=== PATIENT | female | born 1995 | race Caucasian/White ===

== ENCOUNTER → 2019-08-06 | Outpatient (REF) | payer OTHER ==
[2019-08-06 18:51] LABS: CREATININE, URINE 76.1 MG/DL; MALB URINE SIEMENS 21.1 MG/L; MAU/CREAT RATIO 27.7 MCG/MG (0.0-30.0)
== END ==
LOC: M SMT 17:30
PROVIDERS: ATTEND Physician Assistant Medical
DX: E10.9 Type 1 diabetes mellitus without complications (principal)
CPT/HCPCS: 82043; G0463

== ENCOUNTER → 2019-08-27 | Outpatient (CLI) | payer OTHER ==
[2019-08-27 17:06] LABS: BASO # 0.1 10^3/uL (0.0-0.2); EOS # 0.1 10^3/uL (0.0-0.5); EOS % 1.3 % (0.0-3.0); HEMATOCRIT 41.4 % (36.0-47.0); HEMOGLOBIN 14.2 g/dl (12.0-15.5); LYMPH # 2.4 10^3/uL (1.5-5.0); LYMPH % 38.5 % (24.0-44.0); MEAN CORPUSCULAR HEMOGLOBIN 30.3 pg (27.0-33.0); MEAN CORPUSCULAR HGB CONC 34.3 g/dl (32.0-36.5); MEAN CORPUSCULAR VOLUME 88.3 fl (80.0-96.0); MONO # 0.5 10^3/uL (0.0-0.8); MONO % 8.6 % (0.0-5.0); NEUTROPHILS # 3.1 10^3/uL (1.5-8.5); NEUTROPHILS % 50.4 % (36.0-66.0); PLATELET COUNT, AUTOMATED 305 10^3/uL (150-450); RED BLOOD COUNT 4.69 10^6/uL (4.00-5.40); WHITE BLOOD COUNT 6.1 10^3/uL (4.0-10.0)
[2019-08-27 17:10] LABS: ALBUMIN 3.8 GM/DL (3.2-5.2); ALT/SGPT 20 U/L (12-78); BILIRUBIN,TOTAL 0.9 MG/DL (0.2-1.0); BLOOD UREA NITROGEN 13 MG/DL (7-18); CALCIUM LEVEL 9.6 MG/DL (8.5-10.1); CARBON DIOXIDE LEVEL 29 MEQ/L (21-32); CHLORIDE LEVEL 107 MEQ/L (98-107); CHOLESTEROL LEVEL 181 MG/DL (<200); CHOLESTEROL RISK RATIO 3.016 (<5); CREATININE FOR GFR 0.77 MG/DL (0.55-1.30); GLOMERULAR FILTRATION RATE > 60.0 (>60); GLUCOSE, FASTING 146 MG/DL (70-100); HDL CHOLESTEROL 60 MG/DL (>40); LDL CHOLESTEROL 106 MG/DL (<100); NON-HDL-C 121 MG/DL; POTASSIUM SERUM 3.8 MEQ/L (3.5-5.1); SODIUM LEVEL 141 MEQ/L (136-145); TOTAL PROTEIN 7.2 GM/DL (6.4-8.2); TRIGLYCERIDES LEVEL 73 MG/DL (<150)
[2019-08-27 17:31] LABS: MALB URINE SIEMENS 14.4 MG/L; MAU/CREAT RATIO 9.6 MCG/MG (0.0-30.0)
[2019-08-27 17:49] LABS: HEMOGLOBIN A1c 10.9 %
== END ==
LOC: M WUC 11:20
PROVIDERS: ATTEND Physician Assistant Medical
DX: Z13.220 Encounter for screening for lipoid disorders (principal); E10.9 Type 1 diabetes mellitus without complications

== ENCOUNTER → 2020-12-07 | Outpatient (CLI) | payer OTHER | LOC: M WUC 15:54 | PROVIDERS: ATTEND Physician Assistant | DX: Z32.00 Encounter for pregnancy test, result unknown (principal) ==

== ENCOUNTER → 2020-12-17 | Outpatient (CLI) | payer OTHER ==
[2020-12-17 07:50] LABS: BASO # 0.1 10^3/uL (0.0-0.2); BASO % 1.1 % (0.0-1.0); EOS # 0.1 10^3/uL (0.0-0.5); EOS % 0.9 % (0.0-3.0); HEMOGLOBIN 13.5 g/dl (12.0-15.5); LYMPH # 2.1 10^3/uL (1.5-5.0); LYMPH % 32.6 % (24.0-44.0); MEAN CORPUSCULAR HEMOGLOBIN 29.2 pg (27.0-33.0); MEAN CORPUSCULAR HGB CONC 32.9 g/dl (32.0-36.5); MEAN CORPUSCULAR VOLUME 88.6 fl (80.0-96.0); MONO # 0.6 10^3/uL (0.0-0.8); MONO % 8.9 % (2.0-8.0); NEUTROPHILS # 3.7 10^3/uL (1.5-8.5); PLATELET COUNT, AUTOMATED 296 10^3/uL (150-450); RED BLOOD COUNT 4.63 10^6/uL (4.00-5.40); WHITE BLOOD COUNT 6.5 10^3/uL (4.0-10.0)
[2020-12-17 08:17] LABS: ALBUMIN 3.6 GM/DL (3.2-5.2); ALT/SGPT 30 U/L (12-78); BILIRUBIN,TOTAL 0.7 MG/DL (0.2-1.0); BLOOD UREA NITROGEN 11 MG/DL (7-18); CALCIUM LEVEL 8.9 MG/DL (8.5-10.1); CARBON DIOXIDE LEVEL 27 MEQ/L (21-32); CHLORIDE LEVEL 105 MEQ/L (98-107); CHOLESTEROL LEVEL 195 MG/DL (<200); CREATININE FOR GFR 0.75 MG/DL (0.55-1.30); GLOMERULAR FILTRATION RATE > 60.0 (>60); GLUCOSE, FASTING 161 MG/DL (70-100); HDL CHOLESTEROL 50 MG/DL (>40); LDL CHOLESTEROL 128 MG/DL (<100); NON-HDL-C 145 MG/DL; SODIUM LEVEL 140 MEQ/L (136-145); TRIGLYCERIDES LEVEL 84 MG/DL (<150)
[2020-12-17 08:22] LABS: MALB URINE SIEMENS 48.7 MG/L; MAU/CREAT RATIO 41.6 MCG/MG (0.0-30.0)
[2020-12-17 10:21] LABS: HEMOGLOBIN A1c 10.4 %
== END ==
LOC: M LAB 07:14
PROVIDERS: ATTEND Physician Assistant Medical
DX: E10.9 Type 1 diabetes mellitus without complications (principal); Z13.220 Encounter for screening for lipoid disorders

== ENCOUNTER → 2021-01-04 | Outpatient (REF) | LOC: M LABSMTC 11:38 | PROVIDERS: ATTEND Pediatrics | DX: Z20.822 Contact with and (suspected) exposure to COVID-19 (principal) ==

== ENCOUNTER → 2021-01-05 | Outpatient (REF) | payer OTHER ==
[2021-01-05 17:25] LABS: HEMATOCRIT 39.6 % (36.0-47.0); HEMOGLOBIN 13.2 g/dl (12.0-15.5); MEAN CORPUSCULAR HEMOGLOBIN 29.6 pg (27.0-33.0); MEAN CORPUSCULAR HGB CONC 33.3 g/dl (32.0-36.5); MEAN CORPUSCULAR VOLUME 88.8 fl (80.0-96.0); PLATELET COUNT, AUTOMATED 307 10^3/uL (150-450); RED BLOOD COUNT 4.46 10^6/uL (4.00-5.40); WHITE BLOOD COUNT 9.6 10^3/uL (4.0-10.0)
[2021-01-05 22:34] LABS: HIV 1&2 SCREEN CENTAUR NEGATIVE (NEGATIVE)
[2021-01-08 13:09] LABS: HEPATITIS C VIRUS ABY INDEX < 0.0 INDEX (<0.8)
== END ==
LOC: M PLALAB 15:46
PROVIDERS: ATTEND Specialist
DX: Z34.01 Encounter for supervision of normal first pregnancy, first trimester (principal)

== ENCOUNTER → 2021-02-08 | Outpatient (CLI) | payer OTHER | LOC: M PLALAB 11:24 | PROVIDERS: ATTEND Obstetrics & Gynecology | DX: O09.891 Supervision of other high risk pregnancies, first trimester (principal) | CPT/HCPCS: 36415; G0463 ==

== ENCOUNTER → 2021-02-08 | Outpatient (REF) | payer OTHER | LOC: M PLALAB 11:12 | PROVIDERS: ATTEND Obstetrics & Gynecology | DX: O24.011 Pre-existing type 1 diabetes mellitus, in pregnancy, first trimester (principal) ==

== ENCOUNTER → 2021-02-15 | Outpatient (REF) | payer OTHER ==
[2021-02-15 09:41] LABS: URINE TOTAL PROTEIN 18.8 MG/DL (0-12)
== END ==
LOC: M SFHCWAGY 08:27
PROVIDERS: ATTEND Obstetrics & Gynecology
DX: O24.011 Pre-existing type 1 diabetes mellitus, in pregnancy, first trimester (principal)

== ENCOUNTER → 2021-02-18 | Outpatient (CLI) | payer OTHER ==
[2021-02-18 17:33] LABS: HEMOGLOBIN A1c 8.1 %
== END ==
LOC: M LAB 16:01
PROVIDERS: ATTEND Physician Assistant Medical
DX: E10.9 Type 1 diabetes mellitus without complications (principal)

== ENCOUNTER → 2021-03-22 | Outpatient (CLI) | payer OTHER ==
[2021-03-22 17:41] LABS: HEMOGLOBIN A1c 7.6 %
== END ==
LOC: M LAB 16:09
PROVIDERS: ATTEND Physician Assistant Medical
DX: E10.10 Type 1 diabetes mellitus with ketoacidosis without coma (principal)

== ENCOUNTER → 2021-03-26 | Outpatient (CLI) | payer OTHER ==
--- NOTE | 2021-03-26 09:11 | REP ---
INDICATION: ANATOMY COMPARISON: None TECHNIQUE: Transabdominal obstetrical ultrasound with color Doppler evaluation. FINDINGS: Examination demonstrates a single live intrauterine in cephalic presentation. motion is identified by technologist. Placenta is noted posterior and grade 1 without evidence for placenta previa or abruption. Amniotic fluid volume is normal. Cervix measures 4.8 cm in length and appears closed.. Gestational age by LMP 20 weeks 3 days with DANIEL 08/10/2021. Gestational age by current measurements 20 weeks 5 days with DANIEL 08/08/2021. FHR equals 146 beats per minute. Estimated weight 373 grams (61stpercentile based on age by LMP). Anatomical assessment demonstrates normal structures including cranium, choroid plexus, cavum, cerebellum/posterior fossa, facial features, lungs, ventricular outflow tracts, diaphragm, stomach, cord insertion/three-vessel cord, kidneys/bladder, and extremities. IMPRESSION: 1. Single live intrauterine in cephalic presentation. 2. Estimated weight within normal range based on age by LMP at 20 weeks 3 days. 3. Limited evaluation of the four-chamber heart and spine. Remainder of the anatomical assessment is complete and normal. <Electronically signed by Asael Vasquez > 03/26/21 [id number]
== END ==
LOC: M WHC 07:47
PROVIDERS: ATTEND Specialist
DX: Z36.89 Encounter for other specified antenatal screening (principal); Z3A.16 16 weeks gestation of pregnancy

== ENCOUNTER → 2021-04-07 | Outpatient (CLI) | payer OTHER | LOC: M WHC 09:52 | PROVIDERS: ATTEND Obstetrics & Gynecology | DX: Z36.89 Encounter for other specified antenatal screening (principal); Z3A.20 20 weeks gestation of pregnancy ==

== ENCOUNTER → 2021-04-14 | Outpatient (CLI) | payer OTHER ==
[2021-04-14 17:40] LABS: HEMOGLOBIN A1c 6.9 %
== END ==
LOC: M LAB 16:33
PROVIDERS: ATTEND Physician Assistant Medical
DX: E10.10 Type 1 diabetes mellitus with ketoacidosis without coma (principal)

== ENCOUNTER → 2021-04-20 | Outpatient (REF) | payer OTHER ==
[2021-04-20 13:40] LABS: BASO # 0.1 10^3/uL (0.0-0.2); BASO % 0.5 % (0.0-1.0); EOS # 0.1 10^3/uL (0.0-0.5); EOS % 0.7 % (0.0-3.0); HEMATOCRIT 36.9 % (36.0-47.0); HEMOGLOBIN 12.3 g/dl (12.0-15.5); LYMPH # 1.7 10^3/uL (1.5-5.0); LYMPH % 17.6 % (24.0-44.0); MEAN CORPUSCULAR HEMOGLOBIN 30.9 pg (27.0-33.0); MEAN CORPUSCULAR HGB CONC 33.3 g/dl (32.0-36.5); MEAN CORPUSCULAR VOLUME 92.7 fl (80.0-96.0); MONO # 0.6 10^3/uL (0.0-0.8); MONO % 6.3 % (2.0-8.0); NEUTROPHILS % 74.2 % (36.0-66.0); PLATELET COUNT, AUTOMATED 273 10^3/uL (150-450); RED BLOOD COUNT 3.98 10^6/uL (4.00-5.40); WHITE BLOOD COUNT 9.5 10^3/uL (4.0-10.0)
[2021-04-20 14:43] LABS: FERRITIN 8 NG/ML (8-252); FREE T4 1.03 NG/DL (0.76-1.46); THYROID PEROXIDASE ANTIBODY < 28.0 U/ML (<60.0); THYROID STIMULATING HORMONE 0.859 uIU/ML (0.358-3.740)
[2021-04-20 15:40] LABS: THYROGLOBULIN ANTIBODY < 15.0 U/ML (<60.0)
== END ==
LOC: M SFHCPLAZ 09:39
PROVIDERS: ATTEND Family Medicine
DX: E10.9 Type 1 diabetes mellitus without complications (principal)

== ENCOUNTER → 2021-04-27 | Outpatient (CLI) | payer OTHER ==
--- NOTE | 2021-04-27 10:09 | REP ---
INDICATION: F/U ANATOMY COMPARISON: 03/26/2021 TECHNIQUE: Transabdominal obstetrical ultrasound with color Doppler evaluation. FINDINGS: Examination demonstrates a single live intrauterine in transverse presentation. motion is identified by technologist. Placenta is noted posterior and grade 1 without evidence for placenta previa or abruption. Amniotic fluid volume is normal. Cervix measures 4.8 cm in length and appears closed.. Selected gestational age: 23 weeks 5 days with DANIEL 08/19/2021. Gestational age by current measurements 26 weeks 1 day with DANIEL 08/02/2021. FHR equals 150 beats per minute. Estimated weight 904 grams (greater than 97thpercentile based on selected age; 79th percentile based on age by LMP). Anatomical assessment demonstrates normal structures including cranium, choroid plexus, cavum, cerebellum/posterior fossa, facial features, lungs, four-chamber heart/ventricular outflow tracts, diaphragm, stomach, cord insertion/three-vessel cord, kidneys/bladder, spine, and extremities. IMPRESSION: 1. Single live intrauterine in transverse lie. Estimated weight as above. 2. Anatomical assessment is complete and normal. <Electronically signed by Asael Vasquez > 04/27/21 [id number]
== END ==
LOC: M WHC 07:57
PROVIDERS: ATTEND Obstetrics & Gynecology
DX: Z36.89 Encounter for other specified antenatal screening (principal); Z3A.20 20 weeks gestation of pregnancy

== ENCOUNTER → 2021-05-20 | Outpatient (CLI) | payer OTHER ==
[2021-05-20 15:25] LABS: HEMATOCRIT 34.1 % (36.0-47.0); HEMOGLOBIN 11.2 g/dl (12.0-15.5); MEAN CORPUSCULAR HEMOGLOBIN 29.7 pg (27.0-33.0); MEAN CORPUSCULAR HGB CONC 32.8 g/dl (32.0-36.5); MEAN CORPUSCULAR VOLUME 90.5 fl (80.0-96.0); PLATELET COUNT, AUTOMATED 247 10^3/uL (150-450); RED BLOOD COUNT 3.77 10^6/uL (4.00-5.40); WHITE BLOOD COUNT 10.5 10^3/uL (4.0-10.0)
[2021-05-20 15:37] LABS: HEMOGLOBIN A1c 6.5 %
== END ==
LOC: M PLALAB 13:40
PROVIDERS: ATTEND Specialist
DX: O24.919 Unspecified diabetes mellitus in pregnancy, unspecified trimester (principal)

== ENCOUNTER → 2021-05-20 | Outpatient (CLI) | payer OTHER | LOC: M PLALAB 13:42 | PROVIDERS: ATTEND Obstetrics & Gynecology | DX: O24.012 Pre-existing type 1 diabetes mellitus, in pregnancy, second trimester (principal) ==

== ENCOUNTER → 2021-06-10 | Outpatient (CLI) | payer OTHER ==
--- NOTE | 2021-06-10 16:17 | REP ---
INDICATION: GROWTH TYPE 1 DIABETES. COMPARISON: 04/27/2021. TECHNIQUE: Multiple ultrasonographic images of the gravid uterus. FINDINGS: There is a single intrauterine gestation in a cephalic presentation. The placenta is posterior with grade 1 maturity. There is no placenta previa. heart rate is 146 beats per minute. Subjectively there is polyhydramnios. Amniotic fluid index: 28.1 (23.4-9.0 close). Cervix measures 3.7 cm length. The composite ultrasound gestational age by today's study is 35 weeks 3 days with an DANIEL of 07/12/2021. Gestational age by the 1st ultrasound is 30 weeks 0 days with an DANIEL of 08/19/2021. Estimated weight is 2900 g/6 lb, 6 oz. This is greater than the 97th percentile for 30 weeks 0 days. IMPRESSION: Based on the 1st ultrasound this gestation the gestational age is 30 weeks 0 days with an DANIEL of 08/19/2021. The weight on the study today is greater than the 97th percentile for 30 weeks 0 days. Polyhydramnios. <Electronically signed by Evans Granado > 06/10/21 [id number]
== END ==
LOC: M WHC 15:23
PROVIDERS: ATTEND Obstetrics & Gynecology
DX: O24.13 Pre-existing type 2 diabetes mellitus, in the puerperium (principal)

== ENCOUNTER → 2021-06-21 | Outpatient (CLI) | payer OTHER ==
[~2021-06-21] MED LIST: INSUHUMDS SC; PRENTAB9 PO
[2021-06-21 17:36] LABS: HEMOGLOBIN 11.6 g/dl (12.0-15.5); MEAN CORPUSCULAR HEMOGLOBIN 28.2 pg (27.0-33.0); MEAN CORPUSCULAR HGB CONC 33.1 g/dl (32.0-36.5); PLATELET COUNT, AUTOMATED 250 10^3/uL (150-450); RED BLOOD COUNT 4.12 10^6/uL (4.00-5.40); WHITE BLOOD COUNT 8.9 10^3/uL (4.0-10.0)
[2021-06-21 17:53] LABS: ALBUMIN 2.3 GM/DL (3.2-5.2); ALT/SGPT 12 U/L (12-78); BILIRUBIN,TOTAL 0.8 MG/DL (0.2-1.0); BLOOD UREA NITROGEN 5 MG/DL (7-18); CALCIUM LEVEL 9.4 MG/DL (8.5-10.1); CARBON DIOXIDE LEVEL 26 MEQ/L (21-32); CHLORIDE LEVEL 107 MEQ/L (98-107); CREATININE FOR GFR 0.57 MG/DL (0.55-1.30); GLOMERULAR FILTRATION RATE > 60.0 (>60); GLUCOSE, FASTING 188 MG/DL (70-100); POTASSIUM SERUM 4.3 MEQ/L (3.5-5.1); SODIUM LEVEL 139 MEQ/L (136-145)
[2021-06-21 17:54] LABS: HEMOGLOBIN A1c 7.4 %
== END ==
LOC: M PLALAB 15:49
PROVIDERS: ATTEND Specialist
DX: O24.013 Pre-existing type 1 diabetes mellitus, in pregnancy, third trimester (principal); E10.9 Type 1 diabetes mellitus without complications; Z3A.00 Weeks of gestation of pregnancy not specified
CPT/HCPCS: 36415; 59025; 80053; 83036; 85027; G0463

== ENCOUNTER → 2021-07-09 | Outpatient (CLI) | payer OTHER ==
--- NOTE | 2021-07-09 20:02 | REP ---
INDICATION: GROWTH/DIABETES. COMPARISON: June 10, 2021. TECHNIQUE: Transabdominal obstetric sonography. FINDINGS: Scanning through the gravid uterus demonstrates a viable single intrauterine gestation in cephalic lie. motion is observed and heart rate is recorded at 152 beats per minute. A posterior placenta is seen, grade 1, without evidence of placenta previa. Closed cervical length is measured at 3.3 cm transabdominally. No extrauterine abnormality is observed. Amniotic fluid is subjectively polyhydramnios. HENRIK is 30.9 cm (8.1-24.8 cm).. Biometry chart: BPD 9.4 cm, 38 weeks 2 days Head circumference 33.4 cm, 38 weeks 1 day Abdominal circumference 39.3 cm Femur length 7.5 cm, 38 weeks 2 days Humeral length 6.4 cm, 36 weeks 6 days HC AC ratio 0.85 (0.9421.13) Cephalic index normal 0.80 Estimated weight 4286 g, 9 lb 7 oz, greater than 97th percentile for 34 weeks 1 day IMPRESSION: Viable single intrauterine gestation at 37 weeks 6 days by today's composite sonographic criteria. DANIEL by today's sonography July 24, 2021. No complication identified. Expected gestational age estimate based on known DANIEL of August 19, 2021 is 34 weeks 1 day. Estimated weight greater than 97th percentile. Polyhydramnios. <Electronically signed by Gautam Santana > 07/09/21 [id number]
== END ==
LOC: M WHC 15:19
PROVIDERS: ATTEND Obstetrics & Gynecology
DX: O24.313 Unspecified pre-existing diabetes mellitus in pregnancy, third trimester (principal); Z3A.37 37 weeks gestation of pregnancy

== ENCOUNTER 2021-07-13 11:07 | Outpatient (CLI) | payer OTHER ==
[~2021-07-13] VITALS: Ht 167.6 cm; Wt 109.0 kg
[2021-07-13] MEDS ORDERED: INSUHUMDS SC (11:21)
[2021-07-13] MEDS ORDERED: PRENTAB9 PO (11:21)
[2021-07-13] MEDS ORDERED: HOME MED LIST COMPLETE! XX SCH (11:25)
[2021-07-13 11:26] VITALS: BP 127/67
[2021-07-13 12:00] VITALS: BP 120/71
--- NOTE | 2021-07-13 12:42 | REP ---
INDICATION: VARIABILITY ON TRACING IN OFFICE. COMPARISON: 07/09/2021. TECHNIQUE: Real-time sonographic evaluation of gravid uterus performed. FINDINGS: Estimated gestational age is reportedly 34 weeks 5 days, EDC 08/19/2021. position cephalic. Placenta posterior and grade 3 with no previa. heart rate 143 beats per minute. There is evidence of polyhydramnios. HENRIK 31.6, normal 8.0-24.9. Biophysical profile score 8/8. SD ratio umbilical artery 2.84, normal 1.69-3.62. RI 0.65, normal 0.46-0.72. IMPRESSION: Biophysical profile score 8/8. Polyhydramnios. <Electronically signed by Evans Ann > 07/13/21 [id number]
[2021-07-13 12:53] VITALS: BP 123/71
--- NOTE | 2021-07-13 16:18 | IPNPDOC ---
Text Note Date of Service The patient was seen on 07/13/21. NOTE 26-year-old 1 presented at 35 weeks for prolonged monitoring and biophysical profile. Her history significant for insulin-dependent diabetes. She is currently using an insulin pump. She was seen in the office today where she had a nonreactive NST. O: VSS, AG CAt I tracing 06/06 BPP A/P: 26-year-old 35 weeks with insulin-dependent diabetes Reassuring status labor precautions and kick counts Follow-up next week for OB appointment MD DEV uZniga,Saroj, I+O VSSaroj I+O Vital Signs Date Time Temp Pulse Resp B/P (MAP) Pulse Ox O2 Delivery O2 Flow Rate FiO2 07/13/21 12:53 98.2 102 18 123/71 (88) KIRA LOPEZ MD. Jul 13, 2021 16:18
== END 2021-07-13 13:15 | disposition home or self-care (01) ==
LOC: M LDO 11:07
PROVIDERS: ATTEND Obstetrics & Gynecology
DX: O40.3XX0 Polyhydramnios, third trimester, not applicable or unspecified (principal); Z3A.35 35 weeks gestation of pregnancy; O24.113 Pre-existing type 2 diabetes mellitus, in pregnancy, third trimester; E11.65 Type 2 diabetes mellitus with hyperglycemia
CPT/HCPCS: 59025; 76815; 76819; 76820; G0378; G0463

== ENCOUNTER → 2021-07-14 | Outpatient (REF) | payer OTHER | LOC: M SFHCWAGY 17:56 | PROVIDERS: ATTEND Obstetrics & Gynecology | DX: Z36.89 Encounter for other specified antenatal screening (principal); Z3A.34 34 weeks gestation of pregnancy ==

== ENCOUNTER 2021-07-15 14:59 | Inpatient (IN) | payer OTHER ==
[~2021-07-15] VITALS: Ht 167.6 cm; Wt 109.4 kg
[2021-07-15 15:18] VITALS: BP 167/87
[2021-07-15 15:29] VITALS: BP 155/74
[2021-07-15 16:10] LABS: HEMOGLOBIN 10.7 g/dl (12.0-15.5); MEAN CORPUSCULAR HEMOGLOBIN 26.5 pg (27.0-33.0); MEAN CORPUSCULAR HGB CONC 32.4 g/dl (32.0-36.5); MEAN CORPUSCULAR VOLUME 81.7 fl (80.0-96.0); PLATELET COUNT, AUTOMATED 258 10^3/uL (150-450); RED BLOOD COUNT 4.04 10^6/uL (4.00-5.40); WHITE BLOOD COUNT 9.9 10^3/uL (4.0-10.0)
[2021-07-15 16:41] LABS: ALBUMIN 2.2 GM/DL (3.2-5.2); ALT/SGPT 13 U/L (12-78); BLOOD UREA NITROGEN 6 MG/DL (7-18); CALCIUM LEVEL 9.4 MG/DL (8.5-10.1); CARBON DIOXIDE LEVEL 22 MEQ/L (21-32); CHLORIDE LEVEL 107 MEQ/L (98-107); CREATININE FOR GFR 0.73 MG/DL (0.55-1.30); GLOMERULAR FILTRATION RATE > 60.0 (>60); GLUCOSE, FASTING 185 MG/DL (70-100); POTASSIUM SERUM 4.3 MEQ/L (3.5-5.1); SODIUM LEVEL 141 MEQ/L (136-145); TOTAL PROTEIN 5.8 GM/DL (6.4-8.2)
[2021-07-15 16:59] VITALS: BP 141/71
[2021-07-15] MEDS: BETAMETHASONE SOLUSPAN 6MG/ML 5ML VIAL (J0702 PER 3MG) IM SCH (17:03)
[2021-07-15 17:49] VITALS: BP 138/80
[2021-07-15 19:45] VITALS: BP 138/79
--- NOTE | 2021-07-15 19:52 | HPEPDOC ---
Obstetrical History & Physical General Date of Admission Jul 15, 2021 at 17:27 History of Present Illness Pt is a 26yo at 35w0d EGA with complicated by severe polyhydramnios and macrosomia. She is a type 1 diabetic with an insulin pump and her sugars have been poorly controlled over the course of the . Pt called the office today with severe headache unrelieved with tylenol. On presentation to labor and delivery she had a severe range blood pressure followed by mild range blood pressures. CBC/CMP were sent and are WNL. Based on patient's clinical picture, the decision was made to administer betamethasone for lung maturity in preparation of an early delivery. Patient does not meet criteria for MgSO4 infusion at this time. Will continue to monitor BPs and blood sugar after administration of betamethasone. Chief Complaint: Gestational Hypertension Information Provided By: Patient Age: 26 : 1 Term: 0 Pre-term: 0 Abortions: 0 Livin Care Care: Good Care Dating EGA at Admission: 35 Antepartum Course Diagnos(e)s 1. Type 1 diabetes - insulin pump, poorly controlled 2. Polyhydramnios 3. Macrosomia 4. 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 Type 1 diabetes 2. Obesity Surgical History: Denies/None Social History Family situation: Spouse/partner home * Smoker: non-smoker Alcohol: Denies Drugs: denies Abuse Violence Screening Have you been hit/kicked/slapp: No Have you been sexually assault: No Imunizations Tdap status: current Allergies Coded Allergies: No Known Allergies (Unverified , 07/13/21) Medications Scheduled No.137/Iron/Folic Acd ( Vitamin Tablet) 1 Each Tablet, 1 TAB PO DAILY Miscellaneous Medications Insulin Human Lispro (Humalog) 100 Unit/1 Ml Vial, 1 UNITS SC Physical Examination Physical Examination GENERAL: Alert and oriented times three. BREAST: . ABDOMEN: Gravid and non-tender to touch. FETUS: Is vertex (VTX) by sterile vaginal examination (SVE), fetus is vertex (VTX) by Max. HEART RATE: Regular rate and rhythm. LUNGS: Clear to auscultation (CTA). EXTREMITIES: No edema. No clonus. Deep tendon reflexes (DTRs) + . Vital Signs/I&O Vital Signs Date Time Temp Pulse Resp B/P (MAP) Pulse Ox O2 Delivery O2 Flow Rate FiO2 07/15/21 17:49 101 18 138/80 (99) 07/15/21 15:18 98.6 Laboratory Data 24H LABS Laboratory Tests 2 07/15/21 15:28: Nucleated Red Blood Cells % (auto) 0.0, Anion Gap 12, Glomerular Filtration Rate > 60.0, Calcium Level 9.4, Total Bilirubin 1.0, Aspartate Amino Transf (AST/SGOT) 11, Alanine Aminotransferase (ALT/SGPT) 13, Alkaline Phosphatase 1 35H, Total Protein 5.8L, Albumin 2.2L, Albumin/Globulin Ratio 0.6L 07/15/21 17:38: Serology Scanned Report Hepatitis B Testing CBC/BMP Laboratory Tests 07/15/21 15:28 Pertinent Laboratoy Data Blood Type: A+ RBC Antibody Screen: Negative HIV: Negative Hepatitis B: Negative Hepatitis C: Negative Rapid Plasma Reagin: Nonreactive Rubella: Immune Chlamydia/Gonorrhea: Negative Group B Streptococcus: Unknown Steroid Therapy Steroid Therapy: Yes Date #1: Jul 15, 2021 Date #2: Jul 16, 2021 Reason Anticipated delivery Assessment Heart Rate (FHR): 140 Variability: Moderate Accelerations: Positive Decelerations: None Tocometer Contractions: Yes Frequency: irregular Assessment/Plan Assessment Hector Hanson is a 26-year-old (G)1 para (P)0 at 35+0 weeks who presents to Labor and Delivery with severe headache and found to have SRBPs on presentation 1. Severe Range Blood Pressure - pt does not meet criteria for pre-eclampsia at this time - will continue to monitor - CBC/CMP on admisssion within normal limits 2. Type 1 diabetes - anticipate poor glucose control - ok for patient to monitor and correct sugar with own insulin pump - check blood sugar every 2 hours 3. Polyhydramnios/Macrosomia - patient aware that if plan to proceed with delivery, will likely be a c- section - [facility]/[place] for first 24 hours then 1hr qShift - consider repeat growth scan if considering IOL 4. - course of betamethasone given in anticipation of delivery Plan Admit and orient. Hem Inspector and consent. Diet: . Group B Streptococcus (GBS) [negative]. Labs and intravenous (IV) per unit protocol. Counseled on Pitocin and induction of labor (IOL). Lactated Ringers (LR): Bolus mL, then at mL/hr. Anticipate [normal spontaneous delivery ()]. C-S as appropriate. JEREMY MEANS MD Jul 15, 2021 19:52
[2021-07-15 20:43] LABS: TOTAL PROTEIN,RANDOM URINE 12.3 MG/DL (0.0-12.0)
[2021-07-15 21:26] VITALS: BP 143/76
[2021-07-15] MEDS: CALCIUM CARBONATE 500 MG CHEW U/D PO PRN (23:53)
[2021-07-16] VITALS (31 sets, daily range): BP systolic 117–193; BP diastolic 56–95
[2021-07-16] MEDS ORDERED: ACETAMINOPHEN 500 MG TAB PO PRN (00:05)
[2021-07-16] MEDS ORDERED: LABETALOL 100MG/20ML VIAL IV STA (08:28)
[2021-07-16] MEDS ORDERED: LABETALOL 100MG/20ML VIAL As Ordered ONE (08:29)
[2021-07-16] MEDS: LABETALOL 200 MG TAB PO SCH ×2 (08:43→20:33)
[2021-07-16] MEDS ORDERED: LABETALOL 200 MG TAB PO SCH (09:00)
[2021-07-16] MEDS: CALCIUM CARBONATE 500 MG CHEW U/D PO PRN ×3 (12:47→22:39)
[2021-07-16] MEDS: BETAMETHASONE SOLUSPAN 6MG/ML 5ML VIAL (J0702 PER 3MG) IM SCH (16:05)
[2021-07-16 19:29] LABS: HEMATOCRIT 30.4 % (36.0-47.0); HEMOGLOBIN 10.1 g/dl (12.0-15.5); MEAN CORPUSCULAR HGB CONC 33.2 g/dl (32.0-36.5); MEAN CORPUSCULAR VOLUME 81.3 fl (80.0-96.0); PLATELET COUNT, AUTOMATED 266 10^3/uL (150-450); RED BLOOD COUNT 3.74 10^6/uL (4.00-5.40); WHITE BLOOD COUNT 12.1 10^3/uL (4.0-10.0)
[2021-07-16 19:49] LABS: ALT/SGPT 13 U/L (12-78); BILIRUBIN,TOTAL 0.9 MG/DL (0.2-1.0); CREATININE FOR GFR 0.69 MG/DL (0.55-1.30); GLOMERULAR FILTRATION RATE > 60.0 (>60); LDH LACTATE DEHYDROGENASE 189 U/L (84-246); URIC ACID 5.7 MG/DL (2.6-6.0)
[2021-07-17] VITALS (13 sets, daily range): BP systolic 120–140; BP diastolic 55–72
[2021-07-17] MEDS ORDERED: OMEPRAZOLE 20 MG CAP PO SCH (00:55)
[2021-07-17] MEDS: NS 1,000 ML IV SCH ×2 (01:11→07:15)
[2021-07-17] MEDS: CALCIUM CARBONATE 500 MG CHEW U/D PO PRN (03:13)
[2021-07-17] MEDS ORDERED: BICITRA 30ML SOLN UDC PO SCH (06:00)
[2021-07-17 06:36] LABS: HEMATOCRIT 30.2 % (36.0-47.0); HEMOGLOBIN 9.7 g/dl (12.0-15.5); MEAN CORPUSCULAR HEMOGLOBIN 26.7 pg (27.0-33.0); MEAN CORPUSCULAR HGB CONC 32.1 g/dl (32.0-36.5); MEAN CORPUSCULAR VOLUME 83.2 fl (80.0-96.0); PLATELET COUNT, AUTOMATED 242 10^3/uL (150-450); RED BLOOD COUNT 3.63 10^6/uL (4.00-5.40); WHITE BLOOD COUNT 11.4 10^3/uL (4.0-10.0)
[2021-07-17] MEDS ORDERED: ceFAZolin SOD 2 GM in IV 1 EA IV ONE (07:00)
[2021-07-17] MEDS ORDERED: NS 800 ML IV ONE (07:00)
[2021-07-17 07:02] LABS: ALT/SGPT 13 U/L (12-78); BILIRUBIN,TOTAL 0.9 MG/DL (0.2-1.0); CREATININE FOR GFR 0.73 MG/DL (0.55-1.30); GLOMERULAR FILTRATION RATE > 60.0 (>60); LDH LACTATE DEHYDROGENASE 246 U/L (84-246); URIC ACID 6.2 MG/DL (2.6-6.0)
--- NOTE | 2021-07-17 07:22 | IPNPDOC ---
Text Note Date of Service The patient was seen on 07/17/21. NOTE S: c/o heartburn. Mild headache overnight O: NAD Abd: Gravid, tense FHT: Cat. I toco: none ext: NT A/P 26 yo at 35 2/7 weeks with type I diabetes, Preeclampsia, macrosomia, and polyhydramnios Plan delivery by section today; given clinical scenario I do not think vaginal delivery is a viable option Neonatology present for delivery Consent signed Pt has required IV antihypertensives during hospitalization VS,Fishbone, I+O VS, Fishbone, I+O Laboratory Tests 07/16/21 19:14 07/17/21 06:18 Vital Signs Date Time Temp Pulse Resp B/P (MAP) Pulse Ox O2 Delivery O2 Flow Rate FiO2 07/17/21 06:01 97.7 113 18 139/68 (91) I&O- Last 24 Hours up to 6 AM 07/17/21 05:59 Intake Total 800 ml Balance 800 ml JAMSHID SANABRIA MD Jul 17, 2021 07:22
[2021-07-17] MEDS ORDERED: ONDANSETRON 4MG/2ML VIAL As Ordered ONE (07:32)
[2021-07-17] MEDS ORDERED: MORPHINE PRES-FREE INJ 10 MG/10 ML VIAL (J2274) As Ordered ONE (07:32)
[2021-07-17] MEDS ORDERED: dexameTHASONE 4 MG/ML 1ML VIAL (J1100 PER 1MG) As Ordered ONE (07:32)
[2021-07-17] MEDS ORDERED: KETOROLAC 60MG 2ML VIAL As Ordered ONE (07:32)
[2021-07-17] MEDS ORDERED: OXYTOCIN 30 UNITS IN 0.9% NaCl 500ML IV BAG (J2590) As Ordered ONE ×2 (07:40→10:04)
[2021-07-17] MEDS ORDERED: ACETAMINOPHEN 1000MG 100ML IV BTL (OFIRMEV) (J0131 PER 10MG) As Ordered ONE (07:48)
[2021-07-17] MEDS ORDERED: ONDANSETRON 4MG/2ML VIAL IV PRN ×2 (08:18→10:20)
[2021-07-17] MEDS ORDERED: METOCLOPRAMIDE INJ 10MG/2ML VIAL (J2765 PER 1) IV PRN ×2 (08:18→10:20)
[2021-07-17] MEDS ORDERED: NALBUPHINE HCL 10 MG/ML AMP (J2300) IV PRN (08:18)
[2021-07-17] MEDS ORDERED: diphenhydrAMINE 50MG/ML VIAL (J1200) IV PRN (08:18)
[2021-07-17] MEDS ORDERED: NALOXONE INJ 0.4MG/1ML VIAL (J2310 PER 1MG) IV PRN ×2 (08:18)
[2021-07-17] MEDS ORDERED: PHENYLephrine 500MCG 5ML (100MCG/ML) SYRINGE As Ordered ONE (08:27)
[2021-07-17] MEDS ORDERED: METOCLOPRAMIDE INJ 10MG/2ML VIAL (J2765 PER 1) As Ordered ONE (08:43)
[2021-07-17 08:58] LABS: CORD GAS ABE A -7.4; CORD GAS ABE V -5.7; CORD GAS HCO3 V 22.5 MEQ/L; CORD GAS O2 SAT V 35.4 %; CORD GAS PCO2 A 59.4 mmHg; CORD GAS PCO2 V 53.5 mmHg; CORD GAS PH A 7.186 UNITS; CORD GAS PH V 7.242 UNITS; CORD GAS PO2 A 17.6 mmHg; CORD GAS PO2 V 18.2 mmHg; CORD GAS SBC A 16.9 MEQ/L; CORD GAS SBC V 18.3 MEQ/L; CORD GAS TCO2 A 23.8 MEQ/L; CORD GAS TCO2 V 24.2 MEQ/L
[2021-07-17] MEDS ORDERED: MEPERIDINE 50 MG/ML 1ML VIAL (J2175) As Ordered ONE (09:00)
[2021-07-17] MEDS: PRENATAL VITAMINS CHEWABLE TABLET PO SCH (09:00)
[2021-07-17] MEDS ORDERED: PERCOCET 5MG/325MG TAB PO PRN ×2 (10:00→10:20)
[2021-07-17] MEDS ORDERED: SIMETHICONE 80MG CHEW TAB PO PRN (10:00)
[2021-07-17] MEDS ORDERED: OXYTOCIN DRIP 30 UNITS in IV 1 EA IV SCH (10:00)
[2021-07-17] MEDS ORDERED: RHOGAM 300 MCG (1500 IU) INJ (J2790) IM SCH (10:00)
[2021-07-17] MEDS ORDERED: ONDANSETRON 4 MG TAB PO PRN (10:00)
[2021-07-17] MEDS: MEASLES,MUMPS,RUBELLA VACCINE INJ (MMR-II) (90707) SC SCH (10:10)
[2021-07-17] MEDS ORDERED: fentaNYL 100 MCG/2 ML INJECTION (J3010) IV PRN (10:20)
[2021-07-17] MEDS ORDERED: LR 1,000 ML IV SCH (10:20)
--- NOTE | 2021-07-17 11:05 | ROOPDOC ---
[facility] Report Of Operation Report of Operation DATE OF PROCEDURE: 07/17/21 Report of operation Preoperative diagnosis:35 2/7 weeks, type I diabetes, preeclampsia, macrosomia, polyhydramnios Postoperative diagnosis: Same Procedure: Primary low transverse section Surgeon: Jamshid Sanabria M.D. EBL: 600 ml. Urine output: 100 mL's. Findings: 8 lbs. 12 oz. male , 's 8 and 9 g normal uterus, fallopian tubes, ovaries. Polyhydramnios present. Operative summary: Patient taken to the operating room where spinal anesthesia was induced. She was prepped draped sterile fashion in the supine position. A Sharif catheter was placed. A Pfannenstiel skin incision was made with scalpel. Fascia was incised and extended bilaterally. The peritoneal cavity was entered. A Mobius retractor was placed. A bladder flap was created. A curvilinear incision was made in lower uterine segment until Clear fluid was noted. The incision was extended manually. The infant was delivered from the vertex position without difficulty. Cord was doubly clamped and cut. The was handed to the awaiting vegetable washing machine operator. The placenta was expressed. Uterus was closed with O-Vicryl in a running locked fashion. A second imbricating layer of Vicryl was placed. Peritoneum was closed with 2-0 Vicryl a running fashion. Fascia was closed with 0 Vicryl in a running fashion. Skin was closed 4-0 Monocryl subcuticular sutures. Sponge, instrument and needle counts were correct. JAMSHID SANABRIA MD Jul 17, 2021 11:05
[2021-07-17] MEDS: LR 1,000 ML IV SCH ×2 (13:47→18:00)
[2021-07-17] MEDS: KETOROLAC 30 MG/ML 1ML VIAL IV SCH ×2 (15:14→20:43)
[2021-07-17] MEDS ORDERED: NS 500 ML IV STA ×2 (18:06→18:35)
[2021-07-17] MEDS: DOCUSATE SODIUM 100MG CAPSULE PO PRN (20:43)
[2021-07-18] MEDS: LR 1,000 ML IV SCH ×4 (02:00→18:00)
[2021-07-18] MEDS: KETOROLAC 30 MG/ML 1ML VIAL IV SCH (03:27)
[2021-07-18 03:30] VITALS: BP 116/63
[2021-07-18 05:44] VITALS: BP 124/62
[2021-07-18 08:32] LABS: HEMATOCRIT 25.4 % (36.0-47.0); HEMOGLOBIN 8.1 g/dl (12.0-15.5); MEAN CORPUSCULAR HEMOGLOBIN 26.8 pg (27.0-33.0); MEAN CORPUSCULAR HGB CONC 31.9 g/dl (32.0-36.5); MEAN CORPUSCULAR VOLUME 84.1 fl (80.0-96.0); PLATELET COUNT, AUTOMATED 181 10^3/uL (150-450); RED BLOOD COUNT 3.02 10^6/uL (4.00-5.40); WHITE BLOOD COUNT 12.3 10^3/uL (4.0-10.0)
[2021-07-18 10:00] VITALS: BP 117/64
[2021-07-18] MEDS: IBUPROFEN 800 MG TAB PO SCH ×2 (11:11→18:43)
[2021-07-18] MEDS: DOCUSATE SODIUM 100MG CAPSULE PO PRN ×2 (11:11→19:40)
[2021-07-18] MEDS: PRENATAL VITAMINS CHEWABLE TABLET PO SCH (11:12)
[2021-07-18 14:00] VITALS: BP 126/67
[2021-07-18 18:04] VITALS: BP 137/71
[2021-07-18] MEDS: PERCOCET 5MG/325MG TAB PO PRN (19:40)
[2021-07-19] MEDS: LR 1,000 ML IV SCH (02:00)
[2021-07-19] MEDS: IBUPROFEN 800 MG TAB PO SCH ×3 (03:32→18:44)
[2021-07-19] MEDS: PERCOCET 5MG/325MG TAB PO PRN ×4 (03:32→20:02)
[2021-07-19] MEDS ORDERED: IBUP80TA PO (04:40)
[2021-07-19] MEDS ORDERED: OXYC1TAB23 PO (04:40)
[2021-07-19] MEDS: PRENATAL VITAMINS CHEWABLE TABLET PO SCH (08:02)
[2021-07-19] MEDS ORDERED: INFLUENZA QUADRIVALENT PF VACCINE 0.5ML SYRINGE IM ONE (09:00)
--- NOTE | 2021-07-19 11:16 | IPNPDOC ---
Progress Note Date of Service: Jul 19, 2021 Day#: 2 Progress Note SUBJECT: Hector is a 26-year-old who had a section at 35.2 weeks gest ation. She was placed on Magnesium for preeclampsia. She a a live male weighting 8 lbs 12 oz that was brought to the NICU for and difficulty maintaining blood sugars. Mom is and pumping. She has showered. Reports she is ambulating and eating a regular diet without any issues. She has voided multiple times. Reports pain is being managed. OBJECTIVE: VITAL SIGNS: see below. Alert and oriented times three. Respiratory: Regular rate and rhythm without use of accessory muscles. Abdomen: Fundus firm. Dressing is intact without erythema. Minimal lochia. ASSESSMENT: Day 2 postoperative, DM Type I, preeclampsia PLAN: 1. Continues supportive nursing care. 2. Anticipate discharge to home tomorrow. VS, I&O, 24H, Fishbone Vital Signs/I&O Vital Signs Date Time Temp Pulse Resp B/P (MAP) Pulse Ox O2 Delivery O2 Flow Rate FiO2 07/19/21 08:33 16 07/19/21 08:03 Room Air 07/18/21 18:04 97.6 106 137/71 (93) 99 l I&O- Last 24 Hours up to 6 AM 07/19/21 06:00 Intake Total 300 ml Output Total 650 ml Balance -350 ml KELVIN JETT CNM Jul 19, 2021 11:16
[2021-07-19] MEDS: MEASLES,MUMPS,RUBELLA VACCINE INJ (MMR-II) (90707) SC SCH (19:05)
[2021-07-19] MEDS: DOCUSATE SODIUM 100MG CAPSULE PO PRN (20:08)
[2021-07-20] MEDS: IBUPROFEN 800 MG TAB PO SCH ×2 (02:29→11:25)
[2021-07-20 06:00] VITALS: BP 134/72
[2021-07-20] MEDS: PRENATAL VITAMINS CHEWABLE TABLET PO SCH (08:42)
--- NOTE | 2021-07-20 11:40 | DS.PDOC ---
Discharge Summary General Date of Admission Jul 15, 2021 at 17:27 Date of Discharge Jul 20, 2021 Discharge Summary PROCEDURES PERFORMED DURING STAY: section. ADMITTING DIAGNOSES: 1. 35-0/7 weeks gestation, preeclampsia type 1 diabetes, polyhydramnios, macrosomia.. DISCHARGE DIAGNOSES: 1. Same. COMPLICATIONS/CHIEF COMPLAINT: Headache. HISTORY OF PRESENT ILLNESS: Pt is a 26yo at 35w0d EGA with complicated by severe polyhydramnios and macrosomia. She is a type 1 diabetic with an insulin pump and her sugars have been poorly controlled over the course of the third trimester. Pt called the office today with severe headache unrelieved with Tylenol. On presentation to labor and delivery she had a severe range blood pressure followed by mild range blood pressures. . HOSPITAL COURSE: Pt is a 26yo at 35w0d EGA with complicated by severe polyhydramnios and macrosomia. She is a type 1 diabetic with an insulin pump and her sugars have been poorly controlled over the course of the third trimester. Pt called the office today with severe headache unrelieved with tylenol. On presentation to labor and delivery she had a severe range blood pressure followed by mild range blood pressures. She was admitted for steroids and blood pressure monitoring. She did require IV antihypertensive medication during hospitalization. After completion of steroids the decision was made to move towards delivery. Due to the situation which included preeclampsia as well as macrosomia and severe polyhydramnios the decision was made to proceed with primary section. The likelihood of successful vaginal delivery in the scenario was very low. On 07/17/2021 she underwent underwent primary section for an 8 pound 12 ounce . There were no complications. Her postoperative course was unremarkable. She had adequate return of bladder bowel function. Her postoperative hemoglobin was 8.1 g/dL. She was not symptomatic at this range. Her blood sugars were adequately controlled with her insulin pump. She was deemed stable for discharge on postop day #3. DISCHARGE MEDICATIONS: Please see below. ALLERGIES: Please see below. PHYSICAL EXAMINATION ON DISCHARGE: VITAL SIGNS: Please see below. GENERAL: NAD HEENT: NCAT CARDIOVASCULAR EXAMINATION: RRR RESPIRATORY EXAMINATION: Clear to auscultation ABDOMINAL EXAMINATION: Nontender, dressing clean dry intact EXTREMITIES: Nontender LABORATORY DATA: Please see below. PROGNOSIS: Good ACTIVITY: [As tolerated]. DIET: Regular DISCHARGE PLAN: Home. DISCHARGE INSTRUCTIONS: 1. Discharge home today 2. Instructions reviewed 3. Pain management 4. Follow-up instructions. DISCHARGE CONDITION: Stable. TIME SPENT ON DISCHARGE: 10 minutes. Vital Signs/I&Os Vital Signs Date Time Temp Pulse Resp B/P (MAP) Pulse Ox O2 Delivery O2 Flow Rate FiO2 07/20/21 06:00 98.6 95 14 134/72 (92) 97 Room Air Discharge Medications Scheduled Ibuprofen (Ibuprofen) 800 Mg Tablet, 800 MG PO Q8H No.137/Iron/Folic Acd ( Vitamin Tablet) 1 Each Tablet, 1 TAB PO DAILY, (Reported) Scheduled PRN Oxycodone HCl/Acetaminophen (Oxycodone-Acetaminophen 5-325) 1 Each Tablet, 1 TAB PO TIDP PRN for pain Miscellaneous Medications Insulin Human Lispro (Humalog) 100 Unit/1 Ml Vial, 1 UNITS SC, (Reported) Allergies Coded Allergies: No Known Allergies (Unverified , 07/13/21) JAMSHID SANABRIA MD Jul 20, 2021 11:40
== END 2021-07-20 14:20 | disposition home or self-care (01) | DRG 773 ==
LOC: M LDO 14:59 → M LDI 17:27 → M OBS 07-17 10:55
PROVIDERS: ADMIT Obstetrics & Gynecology; ATTEND Obstetrics & Gynecology
PROC: 10D00Z1 Extraction of Products of Conception, Low, Open Approach (ICD-10-PCS; principal; 2021-07-17 08:16)
DX: O24.02 Pre-existing type 1 diabetes mellitus, in childbirth (principal); Z3A.35 35 weeks gestation of pregnancy; O40.3XX0 Polyhydramnios, third trimester, not applicable or unspecified; O36.63X0 Maternal care for excessive fetal growth, third trimester, not applicable or unspecified; O99.214 Obesity complicating childbirth; E10.65 Type 1 diabetes mellitus with hyperglycemia; E66.9 Obesity, unspecified; Z37.0 Single live birth; O14.94 Unspecified pre-eclampsia, complicating childbirth; Z79.4 Long term (current) use of insulin